=== PATIENT | male | born 1950 | race Caucasian/White ===

== ENCOUNTER → 2023-02-25 | Outpatient (CLI) | payer OTHER, SELFPAY ==
--- NOTE | 2023-02-25 08:22 | ECHOD_ITS ---
Reason For Study: HTN Procedure This was a 2D Doppler, Color Flow transthoracic echocardiogram. Exam performed in department. Left Ventricle Normal LV size. The estimated ejection fraction is 55 %. Normal diastology for age. No regional wall motion abnormalities noted. Right Ventricle Normal RV size. Normal systolic function. Atria Normal left atrium. Normal right atrium. No doppler evidence for ASD. Mitral Valve There is no mitral valve stenosis. Trivial mitral valve insufficiency. Tricuspid Valve There is no tricuspid stenosis. Trivial tricuspid valve insufficiency. Unable to estimate RV systolic pressure due to insufficient tricuspid regurgitant envelope. Aortic Valve Trisinus/trileaflet aortic valve. There is no aortic stenosis. No aortic valve insufficiency. Pulmonic Valve There is no pulmonic valvular stenosis. Trivial pulmonic valve insufficiency. Great Vessels Normal aortic root. Pericardium/Pleural No pericardial effusion. MMode/2D Measurements & Calculations LVIDd: 5.4 cm IVSd: 0.88 cm Ao root diam: 3.3 cm LVIDs: 4.4 cm LVPWd: 0.87 cm RVDd: 3.6 cm FS: 18.3 % LAV(MOD-bp): 62.0 ml LVAd ap4: 33.0 cm2 SV(MOD-sp4): 47.5 ml LAV(MOD-bp) Indexed: 30.0 ml/m2 LVLd ap4: 8.1 cm LAV(MOD-sp2): 62.2 ml EDV(MOD-sp4): 108.7 ml LAV(MOD-sp4): 57.5 ml EDV(sp4-el): 113.6 ml LVAs ap4: 22.4 cm2 LVLs ap4: 7.0 cm ESV(MOD-sp4): 61.3 ml ESV(sp4-el): 61.0 ml EF(MOD-sp4): 43.6 % EF(sp4-el): 46.3 % SV(sp4-el): 52.6 ml LA A4 area: 19.6 cm2 LA dimension(2D): 4.0 cm RA A4 area: 19.4 cm2 TAPSE: 2.3 cm Time Measurements MV dec time: 0.15 sec Doppler Measurements & Calculations MV E max saulo: 64.8 cm/sec Lat Peak E' Saulo: 6.2 cm/sec Med Peak E' Saulo: 3.7 cm/sec MV A max saulo: 94.3 cm/sec E/E' lat: 10.5 E/E' med: 17.3 MV E/A: 0.69 MV V2 max: 94.8 cm/sec Ao V2 max: 139.0 cm/sec MV max P.6 mmHg MV dec slope: 435.6 cm/sec2 Ao max P.7 mmHg MV V2 mean: 52.1 cm/sec Ao V2 mean: 90.9 cm/sec MV mean P.2 mmHg Ao mean P.8 mmHg MV V2 VTI: 34.9 cm Ao V2 VTI: 33.0 cm AV (velocity ratio): 0.75 LV V1 max: 95.0 cm/sec MR max saulo: 495.8 cm/sec PA V2 max: 95.1 cm/sec LV V1 max P.6 mmHg MR max P.3 mmHg PA V2 mean: 60.0 cm/sec LV V1 mean P.0 mmHg MR mean saulo: 400.8 cm/sec LV V1 mean: 66.3 cm/sec MR mean P.3 mmHg LV V1 VTI: 24.8 cm MR VTI: 224.5 cm TR max saulo: 234.2 cm/sec TR max P.9 mmHg ECHO/Echo Complete Interpretation Summary The estimated ejection fraction is 55 %. Trivial mitral valve insufficiency. Ordering Physician: Romaine Salcido Referring Physician: Romaine Salcido Performed By: Carrie Anderson and Student
== END | disposition home or self-care (01) ==
LOC: CVS 08:21
PROVIDERS: Referring Provider Chiropractor; Visit Provider Chiropractor
DX: I51.9 Heart disease, unspecified (principal)
CPT/HCPCS: 93306